=== PATIENT | male | born 1955 | race Caucasian/White ===

== ENCOUNTER 2017-08-06 16:20 | Emergency (ER) | payer MEDICAID, OTHER ==
[2017-08-06] MEDS ORDERED: Lidocaine 2% Jelly 10 ML Urojet MUCMEM ONE (16:44)
--- NOTE | 2017-08-06 17:31 | EDM.PDOC ---
ED HPI GENERAL MEDICAL PROBLEM - General Chief Complaint: Genitourinary Problem Time Seen by Provider: 08/06/17 17:00 Source of Information: Reports: RN, RN Notes Reviewed History Limitations: Reports: Physical Impairment - History of Present Illness INITIAL COMMENTS - FREE TEXT/NARRATIVE: Resident noted to not have urinary output at change of shift at intermediate. Irrigated with no flow. Catheter was removed with some overflow of urine. Attempted new follow twice without urine return. Coude used without success. Now brought to ER for evaluation and bagley placement. Bladder scan shows 600cc of urine. Bladder distended. Bagley successfully placed by REVIVAL CLERK. Urine sent for to lab. BMP drawn. 400cc now in bagley. Onset: Today Onset Date: 08/06/17 Onset Time: 16:00 Duration: Hour(s):, Other (unchanged) Location: Reports: Pelvis Improves with: Reports: None Worsens with: Reports: None Associated Symptoms: Reports: No Other Symptoms Treatments PROTOTYPE FABRICATOR: Reports: Other (see below) (attempted new bagley replacement) - Related Data Allergies Allergy/AdvReac Type Severity Reaction Status Date / Time No Known Drug Allergies Allergy Cannot Verified 08/06/17 17:06 Remember Home Meds: Home Meds Acetaminophen [Tylenol] 650 mg PO Q4H PRN 08/06/17 [History] Bisacodyl [Dulcolax] 10 mg PO DAILY PRN 08/06/17 [History] Carboxymethylcellulose Sodium [Refresh Plus 0.5%] 1 drop EYELF QID@08,12,16,20 08/06/17 [History] Cholecalciferol (Vitamin D3) [Vitamin D3] 1,000 unit PO DAILY 08/06/17 [History] Citalopram Hydrobromide [Celexa] 20 mg PO DAILY 08/06/17 [History] Desmopressin 0.025 mg PO BID 08/06/17 [History] Folic Acid 1 mg PO DAILY 08/06/17 [History] Hydrocortisone 5 mg PO DAILY@1400 08/06/17 [History] Hydrocortisone 20 mg PO DAILY 08/06/17 [History] LORazepam [Ativan] 0.125 mg PO TID@08,14,20 08/06/17 [History] Levothyroxine Sodium [Levoxyl] 50 mg PO DAILY 08/06/17 [History] Melatonin 3 mg PO DAILY@199908/06/17 [History] Non-Formulary Medication [NF Drug] 0.5 inch EYELF QID@04,10,16,08/06/17 [ History] Nystatin [Nystatin Crm] 1 applic TOP TID PRN 08/06/17 [History] Polyethylene Glycol 3350 [MiraLAX] 17 gm PO DAILY 08/06/17 [History] Potassium Chloride [Klor-Con] 20 meq PO BID@08/06/17 [History] ED ROS GENERAL - Review of Systems Review Of Systems: Unable To Obtain ED EXAM, RENAL/ - Physical Exam Exam: See Below Exam Limited By: Physical Impairment General Appearance: Alert, Mild Distress (Male) Exam: Other (bagley in place now and draining. Bladder nondistended.) Neurological: Alert, Unresponsive Psychiatric: Flat Affect Skin Exam: Warm, Dry, Intact, Normal Color Course - Vital Signs Last Recorded V/S: Last Vital Signs Temp 97.5 F 08/06/17 17:03 Pulse 75 08/06/17 17:03 Resp 20 08/06/17 17:03 BP 114/89 08/06/17 17:03 Pulse Ox 97 08/06/17 17:03 - Orders/Labs/Meds Orders: Active Orders 24 hr Category Date Time Status BASIC METABOLIC PANEL,BMP [CHEM] Stat Lab 08/06/17 17:16 Ordered UA W/MICROSCOPIC [URIN] Stat Lab 08/06/17 17:00 Ordered - Re-Assessments/Exams Free Text/Narrative Re-Assessment/Exam: 08/06/17 17:43 bagley now draining without difficulty. Patient comfortable. Departure - Departure Time of Disposition: 17:50 Disposition: DC/Tfer to [facility] [place] [facility] Condition: Good Clinical Impression: UTI, Urinary tract infectious disease, Hydrocephalus - Discharge Information Instructions: Urine Culture and Sensitivity Testing, Indwelling Urinary Catheter Care, Adult Referrals: Jelena Holman MD [Primary Care Provider] - - My Orders Last 24 Hours: My Active Orders 08/06/17 17:00 UA W/MICROSCOPIC [URIN] Stat 08/06/17 17:16 BASIC METABOLIC PANEL,BMP [CHEM] Stat - Assessment/Plan Last 24 Hours: My Active Orders 08/06/17 17:00 UA W/MICROSCOPIC [URIN] Stat 08/06/17 17:16 BASIC METABOLIC PANEL,BMP [CHEM] Stat Assessment:: Bladder retention UTI hydrocephalus h/o Plan: 1. Bactrim DS BID for 7days. 2. F/u with primary care after completion of antibiotics 3. urine culture f/u in 48hrs.
[2017-08-06 17:32] LABS: CHLORIDE,CL 101 mmol/L (98-115); SODIUM,NA 137 mmol/L (136-145)
[2017-08-06] MEDS ORDERED: Sulfamethoxazole/Trimethoprim 800-160 MG Tab PO ONE (17:49)
== END 2017-08-06 18:00 ==
LOC: KA.ED 16:20
DX: N39.0 Urinary tract infection, site not specified (principal); G91.9 Hydrocephalus, unspecified
CPT/HCPCS: 36415; 80048; 81001; 87086; 87088; 99284; A9270-GY

== ENCOUNTER 2017-08-11 16:45 | Observation (INO) | payer MEDICAID ==
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
[2017-08-11 18:15] LABS: CHLORIDE,CL 97 mmol/L (98-115); SODIUM,NA 131 mmol/L (136-145)
[2017-08-11] MEDS ORDERED: Sodium Chloride 0.9% 1,000 ML IV ONE (18:15)
[2017-08-11 18:16] LABS: ACETAMINOPHEN < 0.0 ug/mL (10.0-30.0)
[2017-08-11] MEDS ORDERED: Acetaminophen 325 MG Tab PO PRN (22:32)
[2017-08-11] MEDS ORDERED: Sodium Chloride 0.9% 5 ML Syringe FLUSH PRN (22:49)
[2017-08-11] MEDS ORDERED: Dextrose 5%-0.45% NaCl 1,000 ML IV SCH (23:30)
[2017-08-12] MEDS ORDERED: Sodium Chloride 0.9% 1,000 ML ONE (07:22)
[2017-08-12] MEDS ORDERED: Carboxymethylcellulose Sodium 0.5% Ophth Soln 15 ML Bottle EYELF SCH (08:00)
[2017-08-12] MEDS ORDERED: Citalopram 20 MG Tab PO SCH (09:00)
[2017-08-12] MEDS ORDERED: DESMOPRESSIN PO SCH (09:00)
[2017-08-12] MEDS ORDERED: Cholecalciferol (Vitamin D3) 1,000 Unit Tab PO SCH (09:00)
--- NOTE | 2017-08-12 09:54 | PCM.HP ---
H&P History of Present Illness - General Date of Service: 08/12/17 Admit Problem/Dx: Admission Diagnosis/Problem Admission Diagnosis/Problem Acute renal failure Source of Information: Old Records, Provider History Limitations: Reports: Altered Mental Status - History of Present Illness Initial Comments - Free Text/Narative: history of present illness 62-year-old gentleman was admitted due to reports of seizures from the care home. detention staff had noticed the patient to have With a call twitches in his upper and lower extremities and sent him to the ED for evaluation as a thought possible seizure activity-however patient has no history of seizures. 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 prior to this he was his normal state of health walking ambulating and fully functional. However over the past few weeks he has been bed ridden and was admitted to 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 he was evaluated at [facility] and with family consultation it was agreed on regarding palliative care treatment only--thus placing him in group home facility. His mental status has slowly and steadily declined and has been non-verbal/non-communicative for two weeks; however the past day or so prior to admission he was much more arousable according to staff. - Related Data Allergies/Adverse Reactions: Allergies Allergy/AdvReac Type Severity Reaction Status Date / Time No Known Drug Allergies Allergy Cannot Verified 08/06/17 17:06 Remember Home Medications: Home Meds Bisacodyl [Dulcolax] 10 mg PO DAILY PRN 08/06/17 [History] Carboxymethylcellulose Sodium [Refresh Plus 0.5%] 1 drop EYELF QID@08,12,16,20 08/06/17 [History] Desmopressin 0.025 mg PO BID 08/06/17 [History] Hydrocortisone 5 mg PO DAILY@1400 08/06/17 [History] Hydrocortisone 20 mg PO DAILY 08/06/17 [History] LORazepam [Ativan] 0.125 mg PO TID@08,14,20 08/06/17 [History] Nystatin [Nystatin Crm] 1 applic TOP TID PRN 08/06/17 [History] Polyethylene Glycol 3350 [MiraLAX] 17 gm PO DAILY 08/06/17 [History] Acetaminophen [Tylenol] 650 mg RECTAL Q8H PRN #20 supp 08/12/17 [Rx] Duratears Ophth Ointment 0.5 inch EYELF QID@04,10,16,22 08/12/17 [History] Past Medical History HEENT History: Reports: Impaired Vision Other HEENT History: 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, Gastrointestinal History: Reports: Chronic Constipation, Other (See Below) Other Gastrointestinal History: anorexia, malnutrition Genitourinary History: Reports: Urinary Incontinence Musculoskeletal History: Reports: Other (See Below) Other Musculoskeletal History: nonambulatory Neurological History: Reports: Other (See Below) Other Neuro History: brain tumor: supracellar mass 1.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 diabetes insipidus Hematologic History: Reports: Other (See Below) Other Hematologic History: pancytopenia Oncologic (Cancer) History: Reports: Brain, Lung - Past Surgical History Respiratory Surgical History: Reports: Lung Biopsies Other Respiratory Surgeries/Procedures: RLL nodule s/p biopsy final pathology consistent with urothelial origin. Oncologic Surgical History: Reports: Other (See Below) Other Oncologic Surgeries/Procedures: biopsy Social & Family History - Tobacco Use Smoking Status *Q: Unknown Ever Smoked Second Hand Smoke Exposure: No - Caffeine Use Caffeine Use: Reports: None H&P Review of Systems - Review of Systems: Review Of Systems: Unable To Obtain Exam - Exam Exam: See Below - Vital Signs Vital Signs: Last Vital Signs Temp 95.4 F 08/12/17 06:10 Pulse 60 08/12/17 06:10 Resp 16 08/12/17 06:10 BP 109/60 08/12/17 06:10 Pulse Ox 96 08/12/17 06:10 Weight: 123 lb 4 oz - Patient Data Lab Results Last 24 hrs: Laboratory Results - last 24 hr 08/11/17 08/11/17 08/11/17 Range/Units 17:50 17:50 17:50 WBC 7.7 (5.0-10.0) 10^3/uL RBC 4.17 L (4.50-6.00) 10^6/uL Hgb 12.8 L (13.0-17.0) g/dL Hct 38.3 L (40.0-52.0) % MCV 91.8 (82.0-92.0) fL MCH 30.7 (27.0-31.0) pg MCHC 33.4 (32.0-36.0) g/dL RDW 15.1 H (11.5-14.5) % Plt Count 214 (150-300) 10^3/uL MPV 7.5 (7.4-10.4) fL Neut % (Auto) 92.3 H (50.0-70.0) % Lymph % (Auto) 4.7 L (20.0-40.0) % [place] % (Auto) 1.1 L (2.0-8.0) % Eos % (Auto) 1.7 (1.0-3.0) % Baso % (Auto) 0.2 (0.0-1.0) % Neut # (Auto) 7.1 H (2.5-7.0) 10^3/uL Lymph # (Auto) 0.4 L (1.0-4.0) 10^3/uL [place] # (Auto) 0.1 (0.1-0.8) 10^3/uL Eos # (Auto) 0.1 (0.1-0.3) 10^3/uL Baso # (Auto) 0.0 (0.0-0.1) 10^3/uL Sodium 131 L (136-145) mmol/L Potassium 5.7 H D (3.3-5.3) mmol/L Chloride 97 L (98-115) mmol/L Carbon Dioxide 22.7 (21.0-32.0) mmol/L BUN 39 H (6-25) mg/dL Creatinine 2.15 H D (0.51-1.17) mg/dL Est Cr Clr Drug Dosing 28.84 mL/min Estimated GFR (MDRD) 31 mL/min Glucose 132 H (70-110) mg/dL Lactic Acid 1.9 (0.4-2.0) mmol/L Calcium 9.7 (8.7-10.3) mg/dL Magnesium 2.5 H (1.8-2.4) mg/dL Total Bilirubin 0.1 L (0.2-1.0) mg/dL AST 21 (15-37) U/L ALT 30 (12-78) U/L Alkaline Phosphatase 113 (46-116) IU/L Total Protein 6.9 (6.4-8.2) g/dL Albumin 3.18 (3.00-4.80) g/dL TSH, Ultra Sensitive (0.340-4.820) uIU/mL Specimen Type Urine Color (YELLOW) Urine Appearance (CLEAR) Urine pH (5.0-9.0) Ur Specific Kevin (1.005-1.030) Urine Protein (NEGATIVE) mg/dL Urine Glucose (UA) (NEGATIVE) mg/dL Urine Ketones (NEGATIVE) mg/dL Urine Occult Blood (NEGATIVE) Urine Nitrite (NEGATIVE) Urine Bilirubin (NEGATIVE) Urine Urobilinogen (0.2-1.0) E.U./dL Ur Leukocyte Esterase (NEGATIVE) Urine RBC /HPF Urine WBC /HPF Ur Epithelial Cells /LPF Other Crystals /HPF Urine Bacteria (NONE TO FEW) /HPF Urine Opiates Screen (NEGATIVE) Ur Oxycodone Screen (NEGATIVE) Urine Methadone Screen (NEGATIVE) Ur Propoxyphene Screen (NEGATIVE) Acetaminophen < 0.0 L (10.0-30.0) ug/mL Ur Barbiturates Screen (NEGATIVE) Ur Tricyclics Screen (NEGATIVE) Ur Phencyclidine Scrn (NEGATIVE) Ur Amphetamine Screen (NEGATIVE) U Methamphetamines Scrn (NEGATIVE) U Benzodiazepines Scrn (NEGATIVE) U Cocaine Metab Screen (NEGATIVE) U Marijuana (THC) Screen (NEGATIVE) 08/11/17 08/11/17 08/11/17 Range/Units 17:50 18:10 18:10 WBC (5.0-10.0) 10^3/uL RBC (4.50-6.00) 10^6/uL Hgb (13.0-17.0) g/dL Hct (40.0-52.0) % MCV (82.0-92.0) fL MCH (27.0-31.0) pg MCHC (32.0-36.0) g/dL RDW (11.5-14.5) % Plt Count (150-300) 10^3/uL MPV (7.4-10.4) fL Neut % (Auto) (50.0-70.0) % Lymph % (Auto) (20.0-40.0) % [place] % (Auto) (2.0-8.0) % Eos % (Auto) (1.0-3.0) % Baso % (Auto) (0.0-1.0) % Neut # (Auto) (2.5-7.0) 10^3/uL Lymph # (Auto) (1.0-4.0) 10^3/uL [place] # (Auto) (0.1-0.8) 10^3/uL Eos # (Auto) (0.1-0.3) 10^3/uL Baso # (Auto) (0.0-0.1) 10^3/uL Sodium (136-145) mmol/L Potassium (3.3-5.3) mmol/L Chloride (98-115) mmol/L Carbon Dioxide (21.0-32.0) mmol/L BUN (6-25) mg/dL Creatinine (0.51-1.17) mg/dL Est Cr Clr Drug Dosing mL/min Estimated GFR (MDRD) mL/min Glucose (70-110) mg/dL Lactic Acid (0.4-2.0) mmol/L Calcium (8.7-10.3) mg/dL Magnesium (1.8-2.4) mg/dL Total Bilirubin (0.2-1.0) mg/dL AST (15-37) U/L ALT (12-78) U/L Alkaline Phosphatase (46-116) IU/L Total Protein (6.4-8.2) g/dL Albumin (3.00-4.80) g/dL TSH, Ultra Sensitive 0.010 L (0.340-4.820) uIU/mL Specimen Type Urinfol Urine Color Yellow (YELLOW) Urine Appearance Slightly cloudy H (CLEAR) Urine pH 5.0 (5.0-9.0) Ur Specific Kevin 1.015 (1.005-1.030) Urine Protein Negative (NEGATIVE) mg/dL Urine Glucose (UA) Negative (NEGATIVE) mg/dL Urine Ketones Negative (NEGATIVE) mg/dL Urine Occult Blood Moderate H (NEGATIVE) Urine Nitrite Negative (NEGATIVE) Urine Bilirubin Negative (NEGATIVE) Urine Urobilinogen 0.2 (0.2-1.0) E.U./dL Ur Leukocyte Esterase Trace H (NEGATIVE) Urine RBC 20-30 H /HPF Urine WBC 5-10 H /HPF Ur Epithelial Cells Few /LPF Other Crystals See note /HPF Urine Bacteria Few (NONE TO FEW) /HPF Urine Opiates Screen Negative (NEGATIVE) Ur Oxycodone Screen Negative (NEGATIVE) Urine Methadone Screen Negative (NEGATIVE) Ur Propoxyphene Screen Negative (NEGATIVE) Acetaminophen (10.0-30.0) ug/mL Ur Barbiturates Screen Negative (NEGATIVE) Ur Tricyclics Screen Negative (NEGATIVE) Ur Phencyclidine Scrn Negative (NEGATIVE) Ur Amphetamine Screen Negative (NEGATIVE) U Methamphetamines Scrn Negative (NEGATIVE) U Benzodiazepines Scrn Negative (NEGATIVE) U Cocaine Metab Screen Negative (NEGATIVE) U Marijuana (THC) Screen Negative (NEGATIVE) 08/12/17 Range/Units 07:15 WBC (5.0-10.0) 10^3/uL RBC (4.50-6.00) 10^6/uL Hgb (13.0-17.0) g/dL Hct (40.0-52.0) % MCV (82.0-92.0) fL MCH (27.0-31.0) pg MCHC (32.0-36.0) g/dL RDW (11.5-14.5) % Plt Count (150-300) 10^3/uL MPV (7.4-10.4) fL Neut % (Auto) (50.0-70.0) % Lymph % (Auto) (20.0-40.0) % [place] % (Auto) (2.0-8.0) % Eos % (Auto) (1.0-3.0) % Baso % (Auto) (0.0-1.0) % Neut # (Auto) (2.5-7.0) 10^3/uL Lymph # (Auto) (1.0-4.0) 10^3/uL [place] # (Auto) (0.1-0.8) 10^3/uL Eos # (Auto) (0.1-0.3) 10^3/uL Baso # (Auto) (0.0-0.1) 10^3/uL Sodium 134 L (136-145) mmol/L Potassium 5.3 (3.3-5.3) mmol/L Chloride 103 (98-115) mmol/L Carbon Dioxide 23.0 (21.0-32.0) mmol/L BUN 35 H (6-25) mg/dL Creatinine 1.82 H (0.51-1.17) mg/dL Est Cr Clr Drug Dosing 33.28 mL/min Estimated GFR (MDRD) 38 mL/min Glucose 75 (70-110) mg/dL Lactic Acid (0.4-2.0) mmol/L Calcium 9.3 (8.7-10.3) mg/dL Magnesium (1.8-2.4) mg/dL Total Bilirubin 0.1 L (0.2-1.0) mg/dL AST 23 (15-37) U/L ALT 26 (12-78) U/L Alkaline Phosphatase 102 (46-116) IU/L Total Protein 6.0 L (6.4-8.2) g/dL Albumin 2.66 L (3.00-4.80) g/dL TSH, Ultra Sensitive (0.340-4.820) uIU/mL Specimen Type Urine Color (YELLOW) Urine Appearance (CLEAR) Urine pH (5.0-9.0) Ur Specific Kevin (1.005-1.030) Urine Protein (NEGATIVE) mg/dL Urine Glucose (UA) (NEGATIVE) mg/dL Urine Ketones (NEGATIVE) mg/dL Urine Occult Blood (NEGATIVE) Urine Nitrite (NEGATIVE) Urine Bilirubin (NEGATIVE) Urine Urobilinogen (0.2-1.0) E.U./dL Ur Leukocyte Esterase (NEGATIVE) Urine RBC /HPF Urine WBC /HPF Ur Epithelial Cells /LPF Other Crystals /HPF Urine Bacteria (NONE TO FEW) /HPF Urine Opiates Screen (NEGATIVE) Ur Oxycodone Screen (NEGATIVE) Urine Methadone Screen (NEGATIVE) Ur Propoxyphene Screen (NEGATIVE) Acetaminophen (10.0-30.0) ug/mL Ur Barbiturates Screen (NEGATIVE) Ur Tricyclics Screen (NEGATIVE) Ur Phencyclidine Scrn (NEGATIVE) Ur Amphetamine Screen (NEGATIVE) U Methamphetamines Scrn (NEGATIVE) U Benzodiazepines Scrn (NEGATIVE) U Cocaine Metab Screen (NEGATIVE) U Marijuana (THC) Screen (NEGATIVE) Result Diagrams: 08/11/17 17:50 08/12/17 07:15 Problem List Initiated/Reviewed/Updated: Yes Orders Last 24hrs: Active Orders 24 hr Category Date Time Status Patient Status [ADT] Routine ADT 08/11/17 20:09 Ordered Bedrest [RC] .PRN Care 08/11/17 22:50 Active EKG Documentation Completion [RC] ASDIRECTED Care 08/11/17 17:35 Active NPO [Nothing Per Oral Diet] [DIET] Diet 08/12/17 Breakfast Active CXR [Chest 1V Frontal] [CR] Stat Exams 08/11/17 17:47 Ordered DRUG SCREEN, URINE [URCHEM] Stat Lab 08/11/17 18:10 Ordered SALICYLATE [REF] Stat Lab 08/11/17 17:50 Received UA W/MICROSCOPIC [URIN] Stat Lab 08/11/17 18:10 Ordered Acetaminophen [Tylenol] Med 08/11/17 22:32 Active 650 mg PO Q4H PRN Carboxymethylcellulose Sodium [Refresh Tears 0.5%] Med 08/12/17 08:00 Active 0 ml EYELF QID@08,12,16,20 Cholecalciferol (Vitamin D3) [Vitamin D3] Med 08/12/17 09:00 Active 1,000 units PO DAILY Citalopram [Celexa] Med 08/12/17 09:00 Active 20 mg PO DAILY Desmopressin [Desmopressin] Med 08/12/17 09:00 Pending 0.025 mg PO BID Dextrose 5%-0.45% NaCl [Dextrose 5%-1/2 NS] 1,000 ml Med 08/11/17 23:30 Active IV ASDIRECTED Sodium Chloride 0.9% [Syrex Flush] Med 08/11/17 22:49 Active 5 ml FLUSH Q8HR PRN Convert IV to Saline Lock [OM.PC] Routine Oth 08/11/17 22:49 Ordered Resuscitation Status Routine Resus Stat 08/11/17 23:18 Ordered EKG 12 Lead [EK] Routine Ther 08/11/17 17:35 Ordered Medication Orders Acetaminophen (Tylenol) 650 mg PO Q4H PRN PRN Reason: Pain Artificial Tears (Refresh Tears 0.5%) 0 ml EYELF QID@08,12,16,20 KEISHA Cholecalciferol (Vitamin D3) 1,000 units PO DAILY [facility] Citalopram Hydrobromide (Celexa) 20 mg PO DAILY KEISHA Dextrose/Sodium Chloride (Dextrose 5%-1/2 Ns) 1,000 mls @ 50 mls/hr IV ASDIRECTED KEISHA Last Admin: 08/11/17 23:30 Dose: 50 mls/hr Non-Formulary Medication (Desmopressin [Desmopressin]) 0.025 mg PO BID KEISHA Sodium Chloride (Syrex Flush) 5 ml FLUSH Q8HR PRN PRN Reason: Keep Vein Open Assessment/Plan Comment:: 62-year-old gentleman was admitted due to reports of seizures from the care home. detention staff had noticed the patient to have With a call twitches in his upper and lower extremities and sent him to the ED for evaluation as a thought possible seizure activity-however patient has no history of seizures. 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 prior to this he was his normal state of health walking ambulating and fully functional. However over the past few weeks he has been bed ridden and was admitted to 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 he was evaluated at [facility] and with family consultation it was agreed on regarding palliative care treatment only--thus placing him in group home facility. His mental status has slowly and steadily declined and has been non-verbal/non-communicative for two weeks; however the past day or so prior to admission he was much more arousable according to staff. 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 patient will be sent back to long-term care for comfort measures.
[2017-08-12] MEDS ORDERED: Nystatin Crm 15 GM Tube TOP PRN (10:06)
[2017-08-12] MEDS ORDERED: Mineral Oil/Petrolatum Ophth Oint 3.5 GM Tube EYELF SCH (11:00)
[2017-08-12] MEDS ORDERED: Sulfamethoxazole/Trimethoprim 800-160 MG Tab PO SCH (11:00)
== END 2017-08-12 12:05 ==
LOC: KA.ED 16:45 → KA.MS 19:30
PROVIDERS: ADMIT Physician Assistant Surgical; ATTEND Family Medicine
DX: G40.409 Other generalized epilepsy and epileptic syndromes, not intractable, without status epilepticus (principal); N39.0 Urinary tract infection, site not specified; E23.2 Diabetes insipidus; E87.5 Hyperkalemia; E87.0 Hyperosmolality and hypernatremia; N17.9 Acute kidney failure, unspecified; C67.9 Malignant neoplasm of bladder, unspecified; C80.1 Malignant (primary) neoplasm, unspecified; C79.31 Secondary malignant neoplasm of brain; C78.01 Secondary malignant neoplasm of right lung; E46 Unspecified protein-calorie malnutrition; E03.9 Hypothyroidism, unspecified; F32.9 Major depressive disorder, single episode, unspecified; J18.9 Pneumonia, unspecified organism; Z79.899 Other long term (current) drug therapy
CPT/HCPCS: 36415; 71045; 80053; 80305; 81001; 83605; 83735; 84443; 85025; 93005; 96360; 96361; 99285; G0378; G0480; J7030; J7042